=== PATIENT | male | born 1955 | race Caucasian/White ===

== ENCOUNTER 2024-03-20 13:40 | Outpatient (CLI) | payer MEDICARE, SELFPAY ==
--- NOTE | 2024-03-20 13:44 | MR_ITS ---
FINAL REPORT CLINICAL HISTORY: LOW BACK PAIN. BILATERAL NUMBNESS AND WEAKNESS OF FEET FINDINGS: Multiplanar MR imaging of the lumbar spine was performed without contrast. Abnormal decreased signal seen throughout with relative sparing at L5-S1. On the sagittal T2-weighted images, multilevel disc degeneration is seen. The vertebral alignment is normal. There is no evidence of fracture. No bony mass is identified. The conus is seen at approximately the L1 level and has an unremarkable appearance. T12-L1: Mild annular disc bulge with mild bilateral neuroforaminal narrowing. L1-2: Mild annular disc bulge with mild bilateral neuroforaminal narrowing. L2-3: Mild to moderate diffuse disc bulge with mild to moderate bilateral neuroforaminal narrowing. L3-4: Diffuse disc bulge with mild to moderate canal stenosis and moderate bilateral neuroforaminal narrowing. L4-5: Diffuse disc bulge with mild to moderate canal stenosis and moderate bilateral neuroforaminal narrowing. L5-S1: There is no significant canal stenosis or neural foraminal narrowing. IMPRESSION: Diffuse disc bulges most evident at L3-4 and L4-5. Mild to moderate canal stenosis and neuroforaminal narrowing as above. Reviewed, Interpreted and Dictated by Kamaljit Andrade MD Transcribed by Patience Velázquez Authenticated and [facility]
== END 2024-03-20 23:59 | disposition home or self-care (01) ==
LOC: RAD 13:41
PROVIDERS: PCP Internal Medicine Adolescent Medicine; Visit Provider Neurological Surgery
DX: M54.16 Radiculopathy, lumbar region (principal); M54.50 Low back pain, unspecified
CPT/HCPCS: 72148